=== PATIENT | female | born 1950 ===

== ENCOUNTER 2018-02-18 07:03 | Day surgery (SDC) | payer SELFPAY ==
[2018-02-18] MEDS ORDERED: Lactated Ringer's 1,000 ML IV ONE ×2 (08:00→09:10)
[2018-02-18] MEDS ORDERED: Silver Nitrate Topical - Stick TOP ONE (10:35)
[2018-02-18] MEDS ORDERED: Silver Nitrate Topical - Stick ONE (10:40)
[2018-02-18 12:19] VITALS: BMI 36.2
[2018-02-18 12:34] VITALS: RESP 18
[2018-02-18 14:37] VITALS: BP 151/72; PULSE 94; TEMP 97.6; O2SAT 98
--- NOTE | 2018-02-24 06:28 | OP ---
PROCEDURE DATE: 02/18/2018 PREOPERATIVE DIAGNOSES: Postmenopausal bleeding and thickened endometrium. POSTOPERATIVE DIAGNOSES: Endometrial polyp and uterine fibroid. PROCEDURE: Hysteroscopy, dilation and curettage, polypectomy, and myomectomy with MyoSure. SURGEON: Yamel Nathan MD. ESTIMATED BLOOD LOSS: 10 mL. FLUID DEFICITS: 75 mL. FINDINGS: The uterus was anteverted and normal in size. Adnexa normal bilaterally. No masses palpated. Upon hysteroscopic exam, an approximately 2 cm endometrial polyp was seen and a submucosal fibroid noted. DESCRIPTION OF PROCEDURE: The patient was taken to the operating room where she was prepped and draped in a normal sterile fashion and given a general anesthesia without difficulty. A bimanual exam was performed with the findings as above. Following this, a weighted speculum was placed in the patient's vagina and the anterior lip of the cervix was grasped with single-tooth tenaculum. The uterus was then sterilely dilated and sounded to approximately 9 cm. The hysteroscope was then introduced into the uterine cavity using sterile saline as the distending media with the attached camera. The endometrial cavity revealed the submucosal fibroid and approximately 2 cm polyp and both ostia were seen at the coronal areas and this was visualized bilaterally. The MyoSure device was then used for removal of the polyp and the submucosal fibroid. The patient tolerated the procedure well and several pictures were taken of the endometrial cavity and hysteroscope was removed from the cavity. A large curette was then used to obtain a moderate amount of tissue which was sent to pathology for analysis. All instruments were then removed from the vaginal vault. The patient was repositioned, awakened from anesthesia and taken to the recovery room in satisfactory postoperative condition. She was given a prescription for Motrin for postoperative pain and a plan to continue pelvic rest and follow up in the office in two weeks for postop analysis. Yamel Nathan MD
== END 2018-02-18 16:20 | disposition home or self-care (01) ==
LOC: H.OPSURG 07:03
PROVIDERS: ATTEND Obstetrics & Gynecology
DX: N89.8 Other specified noninflammatory disorders of vagina (principal); R93.5 Abnormal findings on diagnostic imaging of other abdominal regions, including retroperitoneum; D25.1 Intramural leiomyoma of uterus; N84.0 Polyp of corpus uteri; N95.0 Postmenopausal bleeding; D25.9 Leiomyoma of uterus, unspecified
CPT/HCPCS: 58558; 82948; 88305; J7030; J7120